=== PATIENT | female | born 1960 | race Caucasian/White ===

== ENCOUNTER → 2024-12-12 06:57 | Outpatient (REF) | payer OTHER, SELFPAY ==
[2024-12-12 10:26] LABS: Hematocrit 41.3 % (37.0-47.0); Hemoglobin 14.6 g/dL (12.0-16.0); Mean Corp Hgb Conc. 35.4 g/dL (33.0-37.0); Mean Corpuscular Volume 91.2 fL (81.0-99.0); Nucleated Red Blood Cells % 0 %; Platelet Count 285 10^3/uL (130-400); Red Cell Dist. Width 12.8 % (11.5-14.5)
[2024-12-12 10:28] LABS: INR 0.93; PT 12.8 Sec (11.4-14.6)
[2024-12-12 10:32] LABS: ALT (SGPT) 25 U/L (0-35); AST (SGOT) 35 U/L (14-36); Albumin 3.8 g/dl (3.5-5.0); Alkaline Phosphatase 67 U/L (38-126); Blood Urea Nitrogen 10 mg/dl (7-17); Calcium 8.7 mg/dl (8.4-10.2); Carbon Dioxide 28 mmol/L (22-30); Chloride 100 mmol/L (98-107); GGTP 27 U/L (12-43); Glucose 103 mg/dl (70-99); HDL Cholesterol 47 mg/dl; LDL Cholesterol, Calculated 89 mg/dl; Potassium 4.2 mmol/L (3.5-5.1); Sodium 134 mmol/L (135-145); Total Protein 7.9 g/dl (6.3-8.2); Very Low Density Lipoprotein 11 mg/dl (0-30); eGFR > 60.00
[2024-12-12 11:33] LABS: Glycohemoglobin (HgbA1c) 5.6 % (4.0-5.6)
== END ==
LOC: HWWDC 06:57
PROVIDERS: ATTENDING PHYSICIAN Physician Assistant Medical
DX: K75.4 Autoimmune hepatitis (principal); Z13.820 Encounter for screening for osteoporosis; Z12.31 Encounter for screening mammogram for malignant neoplasm of breast; Z00.01 Encounter for general adult medical examination with abnormal findings; E03.9 Hypothyroidism, unspecified
CPT/HCPCS: 36415; 76700; 77063; 77067; 77080; 80053; 80061; 82977; 83036; 84443; 85025; 85610